=== PATIENT | female | born 1975 | race Asian ===

== ENCOUNTER 2017-07-19 15:00 | Emergency (ER) | payer OTHER ==
[~2017-07-19] VITALS: Ht 167.6 cm; Wt 100.0 kg
[~2017-07-19 15:00] MED LIST: CIPR500T3 PO; HYDR-3240 PO
[2017-07-19] MEDS ORDERED: SODIUM CHLORIDE 0.9% 1,000 ML IV ONE (15:11)
[2017-07-19] MEDS ORDERED: ONDANSETRON 2MG/ML, 2ML IVPush ONE (15:30)
[2017-07-19] MEDS ORDERED: MORPHINE SULFATE 4 MG/ML, 1ML IVPush PRN (15:30)
[2017-07-19] MEDS ORDERED: SODIUM CHLORIDE FLUSH 10ML SYR IVF ONE (15:30)
[2017-07-19] MEDS ORDERED: MORPHINE SULFATE 4 MG/ML, 1ML ONE (15:35)
[2017-07-19] MEDS ORDERED: ONDANSETRON 2MG/ML, 2ML ONE (15:35)
[2017-07-19 15:40] LABS: HEMATOCRIT 50.5 % (34.6-47.8); HEMOGLOBIN 17.3 g/dL (11.7-16.4); WHITE BLOOD COUNT 13.1 x10^3/uL (3.4-10)
[2017-07-19 15:48] LABS: ASPARTATE AMINO TRANSFERASE 36 U/L (15-37); BLOOD UREA NITROGEN 12 mg/dL (7-18)
[2017-07-19 16:04] LABS: IS PT STATUS REG ER OR PRE ER? YES
[2017-07-19 17:25] VITALS: BP 141/67
== END 2017-07-19 17:28 | disposition home or self-care (01) ==
LOC: ED 15:28
DX: R10.13 Epigastric pain (principal); I10 Essential (primary) hypertension
CPT/HCPCS: 36415; 71010; 76700; 80053; 83690; 84484; 85025; 93005; 96361; 96374; 96375; 99285; J2405; J7030

== ENCOUNTER 2017-12-06 20:05 | Inpatient (IN) | payer OTHER ==
[~2017-12-06] VITALS: Ht 167.6 cm; Wt 122.0 kg
[2017-12-06] MEDS ORDERED: MORPHINE SULFATE 4 MG/ML, 1ML ONE (20:27)
[2017-12-06] MEDS ORDERED: ONDANSETRON 2MG/ML, 2ML ONE (20:27)
[2017-12-06] MEDS ORDERED: SODIUM CHLORIDE 0.9% 1,000ML IVBOLUS ONE (20:30)
[2017-12-06] MEDS ORDERED: ONDANSETRON 2MG/ML, 2ML IVPush ONE (20:30)
[2017-12-06] MEDS ORDERED: SODIUM CHLORIDE FLUSH 10ML SYR IVF ONE (20:30)
[2017-12-06 20:42] LABS: BASOPHILS # (AUTO) 0.02 x10^3/uL (0-0.1); BASOPHILS % (AUTO) 0 % (0-1); EOSINOPHILS # (AUTO) 0.01 x10^3/uL (0-0.4); EOSINOPHILS % (AUTO) 0 % (1-7); LYMPHOCYTES # (AUTO) 1.95 x10^3/uL (1-3.4); LYMPHOCYTES % (AUTO) 18 % (22-44); MD NO; MEAN CORPUSCULAR HEMOGLOBIN 31.1 pg (27.0-34.8); MEAN CORPUSCULAR HGB CONC 34.5 g/dL (32.4-35.8); MEAN CORPUSCULAR VOLUME 90.1 fL (80-100); MEAN PLATELET VOLUME 10.3 fL (7.4-10.4); MONOCYTES # (AUTO) 0.38 x10^3/uL (0.2-0.8); MONOCYTES % (AUTO) 4 % (2-9); NEUTROPHILS % (AUTO) 78 % (42-75); PLATELET COUNT 172 x10^3/uL (130-400); RED BLOOD COUNT 5.47 x10^6/uL (3.82-5.3); RED CELL DISTRIBUTION WIDTH 12.7 % (9.6-15.2)
[2017-12-06 20:51] LABS: ALANINE AMINOTRANSFERASE 36 U/L (12-78); ALBUMIN 3.6 g/dL (3.4-5.0); ANION GAP 8 mmol/L (5-15); CALCIUM 9.5 mg/dL (8.5-10.1); CHLORIDE 101 mmol/L (98-107); CREATININE 0.92 mg/dL (0.55-1.02)
[2017-12-06 20:52] LABS: RAPID INFLUENZA A Negative (Negative); RAPID INFLUENZA B Negative (Negative)
[2017-12-06 20:56] LABS: ALKALINE PHOSPHATASE 132 U/L (45-117); BILIRUBIN,TOTAL 0.8 mg/dL (0.2-1.0); TROPONIN I < 0.015 ng/mL (0.000-0.045)
[2017-12-06] MEDS: MORPHINE SULFATE 4 MG/ML, 1ML IVPush PRN (21:03)
[2017-12-06 23:11] LABS: MICROSCOPIC AUTO
[2017-12-06 23:24] LABS: CULTURE INDICATED? YES
[2017-12-06] MEDS ORDERED: OMNIPAQUE 350 MG/ML, 100ML BOTTLE ONE (23:34)
[2017-12-06] MEDS ORDERED: PROMETHAZINE 25 MG/ML, 1ML ONE (23:53)
[2017-12-06] MEDS ORDERED: CEFTRIAXONE PMX 1GM/50ML 50 ML ONE (23:54)
[2017-12-07] MEDS ORDERED: PROMETHAZINE 25 MG/ML, 1ML IM ONE
[2017-12-07] MEDS ORDERED: CEFTRIAXONE PMX 1GM/50ML 50 ML IV ONE
[2017-12-07] MEDS ORDERED: MORPHINE SULFATE 4 MG/ML, 1ML ONE (00:04)
[2017-12-07] MEDS: MORPHINE SULFATE 4 MG/ML, 1ML IVPush PRN (00:05)
[2017-12-07 01:27] VITALS: BP 141/63
[2017-12-07] MEDS ORDERED: POLYETHYLENE GLYCOL 17 GM PACKET PO PRN (02:00)
[2017-12-07] MEDS ORDERED: ENALAPRILAT 1.25 MG/ML, 2ML IVPush PRN (02:00)
[2017-12-07] MEDS ORDERED: LABETALOL 5MG/ML, 20ML IVPush PRN (02:00)
[2017-12-07] MEDS ORDERED: BISACODYL 10 MG SUPP PR PRN (02:00)
[2017-12-07] MEDS ORDERED: OXYcodone IR 5MG TABLET PO PRN (02:00)
[2017-12-07] MEDS ORDERED: hydrALAzine 20 MG/ML, 1ML IVPush PRN (02:00)
[2017-12-07] MEDS ORDERED: morphine SULFATE 10 MG/ML, 1ML IVPush PRN (02:00)
[2017-12-07] MEDS ORDERED: METOCLOPRAMIDE 5 MG/ML, 2ML IVPush PRN (02:30)
[2017-12-07] MEDS: PANTOPRAZOLE 40 MG IV IVPush SCH ×2 (03:00→15:12)
[2017-12-07] MEDS: LISINOPRIL 10 MG TABLET PO SCH ×2 (03:01→08:25)
[2017-12-07] MEDS: SODIUM CHLORIDE 0.9% 1,000 ML IV SCH ×3 (03:01→19:00)
[2017-12-07] MEDS: SUCRALFATE 1 GM TABLET PO SCH ×5 (03:01→21:50)
[2017-12-07] MEDS ORDERED: OMNIPAQUE 350 MG/ML, 100ML BOTTLE ONE (04:07)
[2017-12-07 05:41] LABS: BASOPHILS # (AUTO) 0.02 x10^3/uL (0-0.1); BASOPHILS % (AUTO) 0 % (0-1); EOSINOPHILS # (AUTO) 0.02 x10^3/uL (0-0.4); EOSINOPHILS % (AUTO) 0 % (1-7); LYMPHOCYTES # (AUTO) 2.66 x10^3/uL (1-3.4); LYMPHOCYTES % (AUTO) 24 % (22-44); MD NO; MEAN CORPUSCULAR HEMOGLOBIN 31.2 pg (27.0-34.8); MEAN CORPUSCULAR HGB CONC 34.1 g/dL (32.4-35.8); MEAN CORPUSCULAR VOLUME 91.7 fL (80-100); MONOCYTES # (AUTO) 0.62 x10^3/uL (0.2-0.8); MONOCYTES % (AUTO) 6 % (2-9); NEUTROPHILS # (AUTO) 7.79 x10^3/uL (1.8-6.8); NEUTROPHILS % (AUTO) 70 % (42-75); PLATELET COUNT 189 x10^3/uL (130-400); RED BLOOD COUNT 5.04 x10^6/uL (3.82-5.3); RED CELL DISTRIBUTION WIDTH 12.6 % (9.6-15.2)
[2017-12-07 05:53] LABS: ALBUMIN 3.2 g/dL (3.4-5.0); ANION GAP 6 mmol/L (5-15); CALCIUM 8.4 mg/dL (8.5-10.1); CHLORIDE 104 mmol/L (98-107)
[2017-12-07 05:59] LABS: ALANINE AMINOTRANSFERASE 29 U/L (12-78); ALKALINE PHOSPHATASE 113 U/L (45-117); BILIRUBIN,TOTAL 0.6 mg/dL (0.2-1.0); CHOL/HDL RATIO 2.5; CHOLESTEROL, TOTAL 158 mg/dL (140-239); CREATININE 0.75 mg/dL (0.55-1.02); HDL CHOL % 39 % (28-40); HDL CHOLESTEROL (DIRECT) 62 mg/dL (40-60); LDL CHOLESTEROL,CALCULATED 82 mg/dL (54-169); LDL/HDL RATIO 1.3 (0.5-3.0); TOTAL PROTEIN 7.8 g/dL (6.4-8.2); TRIGLYCERIDES 70 mg/dL (50-200); TROPONIN I < 0.015 ng/mL (0.000-0.045); VLDL CHOLESTEROL 14 mg/dL (0-25)
[2017-12-07 06:00] LABS: FREE T4 (FREE THYROXINE) 1.09 ng/dL (0.76-1.46); THYROID STIMULATING HORMONE 1.21 mIU/L (0.358-3.740)
[2017-12-07 06:32] LABS: HEMOGLOBIN A1C 7.5 % (4.2-6.3)
[2017-12-07] MEDS: INSULIN ASPART 100 UNITS/ML, PEN SQ-INSULIN SCH ×4 (07:00→21:00)
[2017-12-07 07:58] VITALS: BP 92/57
[2017-12-07] MEDS: SENNA/DOCUSATE TABLET PO SCH (08:19)
[2017-12-07] MEDS: ONDANSETRON 2MG/ML, 2ML IVPush PRN ×2 (08:24→17:59)
[2017-12-07] MEDS: CEFTRIAXONE PMX 2GM/50ML 50 ML IV SCH (09:43)
[2017-12-07 11:20] LABS: TROPONIN I < 0.015 ng/mL (0.000-0.045)
[2017-12-07 14:22] VITALS: BP 95/57
[2017-12-07 19:46] VITALS: BP 85/52
[2017-12-08] MEDS: ACETAMINOPHEN 325 MG TABLET PO PRN (00:59)
[2017-12-08 01:30] VITALS: BP 102/57
[2017-12-08] MEDS: SODIUM CHLORIDE 0.9% 1,000 ML IV SCH ×3 (03:04→16:10)
[2017-12-08] MEDS: INSULIN ASPART 100 UNITS/ML, PEN SQ-INSULIN SCH ×4 (06:39→21:00)
[2017-12-08] MEDS: SUCRALFATE 1 GM TABLET PO SCH ×4 (06:39→23:19)
[2017-12-08 07:17] VITALS: BP 92/51
[2017-12-08] MEDS: PANTOPRAZOLE 40 MG IV IVPush SCH ×2 (08:28→23:19)
[2017-12-08] MEDS: LISINOPRIL 10 MG TABLET PO SCH (08:29)
[2017-12-08] MEDS: SENNA/DOCUSATE TABLET PO SCH (08:29)
[2017-12-08] MEDS: CEFTRIAXONE PMX 2GM/50ML 50 ML IV SCH (09:40)
[2017-12-08 12:58] VITALS: BP 120/57
[2017-12-08 19:36] VITALS: BP 115/57
[2017-12-08] MEDS: SIMVASTATIN 40 MG TABLET PO SCH (23:19)
[2017-12-09 01:52] VITALS: BP 96/50
[2017-12-09] MEDS: SODIUM CHLORIDE 0.9% 1,000 ML IV SCH ×2 (03:48→16:35)
[2017-12-09 06:02] LABS: BASOPHILS # (AUTO) 0.04 x10^3/uL (0-0.1); BASOPHILS % (AUTO) 1 % (0-1); EOSINOPHILS # (AUTO) 0.16 x10^3/uL (0-0.4); EOSINOPHILS % (AUTO) 3 % (1-7); LYMPHOCYTES # (AUTO) 2.85 x10^3/uL (1-3.4); LYMPHOCYTES % (AUTO) 45 % (22-44); MD NO; MEAN CORPUSCULAR HEMOGLOBIN 31.4 pg (27.0-34.8); MEAN CORPUSCULAR HGB CONC 34.3 g/dL (32.4-35.8); MEAN CORPUSCULAR VOLUME 91.8 fL (80-100); MEAN PLATELET VOLUME 10.8 fL (7.4-10.4); MONOCYTES # (AUTO) 0.53 x10^3/uL (0.2-0.8); MONOCYTES % (AUTO) 8 % (2-9); NEUTROPHILS # (AUTO) 2.77 x10^3/uL (1.8-6.8); NEUTROPHILS % (AUTO) 44 % (42-75); PLATELET COUNT 122 x10^3/uL (130-400); RED BLOOD COUNT 4.41 x10^6/uL (3.82-5.3); RED CELL DISTRIBUTION WIDTH 12.9 % (9.6-15.2)
[2017-12-09 06:15] LABS: CHLORIDE 110 mmol/L (98-107)
[2017-12-09 06:24] LABS: ALANINE AMINOTRANSFERASE 25 U/L (12-78); ALBUMIN 2.7 g/dL (3.4-5.0); ALKALINE PHOSPHATASE 95 U/L (45-117); ANION GAP 8 mmol/L (5-15); BILIRUBIN,TOTAL 0.2 mg/dL (0.2-1.0); CALCIUM 8.2 mg/dL (8.5-10.1); CREATININE 0.84 mg/dL (0.55-1.02); TOTAL PROTEIN 6.5 g/dL (6.4-8.2)
[2017-12-09] MEDS: SUCRALFATE 1 GM TABLET PO SCH ×4 (06:30→21:00)
[2017-12-09] MEDS: INSULIN ASPART 100 UNITS/ML, PEN SQ-INSULIN SCH ×4 (07:00→21:17)
[2017-12-09 07:33] VITALS: BP 103/63
[2017-12-09] MEDS ORDERED: POTASSIUM CHLORIDE 20 MEQ TAB.ER.PRT PO ONE (08:00)
[2017-12-09] MEDS: CEFTRIAXONE PMX 2GM/50ML 50 ML IV SCH (08:58)
[2017-12-09] MEDS: SENNA/DOCUSATE TABLET PO SCH (08:59)
[2017-12-09] MEDS: LISINOPRIL 10 MG TABLET PO SCH (08:59)
[2017-12-09] MEDS: PANTOPRAZOLE 40 MG IV IVPush SCH (09:04)
[2017-12-09 13:57] VITALS: BP 105/62
[2017-12-09] MEDS: ACETAMINOPHEN 325 MG TABLET PO PRN (16:34)
[2017-12-09 20:12] VITALS: BP 110/58
[2017-12-09] MEDS: SIMVASTATIN 40 MG TABLET PO SCH (21:08)
[2017-12-09] MEDS: PANTOPROZOLE 40MG TABLET PO SCH (21:09)
[2017-12-10] MEDS: SODIUM CHLORIDE 0.9% 1,000 ML IV SCH ×3 (01:30→16:21)
[2017-12-10 02:31] VITALS: BP 113/62
[2017-12-10 05:42] LABS: CHLORIDE 109 mmol/L (98-107)
[2017-12-10 05:52] LABS: ANION GAP 8 mmol/L (5-15); CALCIUM 7.8 mg/dL (8.5-10.1); CREATININE 0.75 mg/dL (0.55-1.02)
[2017-12-10] MEDS: SUCRALFATE 1 GM TABLET PO SCH ×4 (06:21→21:47)
[2017-12-10] MEDS: INSULIN ASPART 100 UNITS/ML, PEN SQ-INSULIN SCH ×4 (06:23→21:47)
[2017-12-10 07:38] VITALS: BP 120/77
[2017-12-10] MEDS: SENNA/DOCUSATE TABLET PO SCH (08:51)
[2017-12-10] MEDS: LISINOPRIL 10 MG TABLET PO SCH (08:51)
[2017-12-10] MEDS: PANTOPROZOLE 40MG TABLET PO SCH ×2 (08:51→21:47)
[2017-12-10] MEDS: CEFTRIAXONE PMX 2GM/50ML 50 ML IV SCH (08:56)
[2017-12-10 13:36] VITALS: BP 126/67
[2017-12-10 19:02] VITALS: BP 110/74
[2017-12-10] MEDS: SIMVASTATIN 40 MG TABLET PO SCH (21:47)
[2017-12-11] MEDS: SODIUM CHLORIDE 0.9% 1,000 ML IV SCH ×3 (00:17→14:10)
[2017-12-11 01:48] VITALS: BP 102/66
[2017-12-11] MEDS: INSULIN ASPART 100 UNITS/ML, PEN SQ-INSULIN SCH ×4 (06:17→20:13)
[2017-12-11 07:33] VITALS: BP 100/66
[2017-12-11] MEDS: SUCRALFATE 1 GM TABLET PO SCH ×4 (07:38→20:13)
[2017-12-11] MEDS: LISINOPRIL 10 MG TABLET PO SCH (08:25)
[2017-12-11] MEDS: CEFTRIAXONE 2,000 MG in DEXTROSE 5% 50 ML IV SCH (08:34)
[2017-12-11] MEDS ORDERED: REGADENOSON 0.4 MG/5 ML SYRINGE ONE (11:22)
[2017-12-11] MEDS: SENNA/DOCUSATE TABLET PO SCH (13:40)
[2017-12-11] MEDS: PANTOPROZOLE 40MG TABLET PO SCH ×2 (13:40→20:11)
[2017-12-11] MEDS: ASPIRIN 81 MG TABLET EC PO SCH (14:56)
[2017-12-11 16:02] VITALS: BP 107/70
[2017-12-11 17:18] VITALS: BP 124/78
[2017-12-11] MEDS: METOPROLOL TARTRATE 25 MG TABLET PO SCH ×2 (17:24→17:26)
[2017-12-11] MEDS ORDERED: HEPARIN 25,000 UNITS/500ML PMX 500 ML IV PRN (17:30)
[2017-12-11] MEDS ORDERED: HEPARIN 5,000 UNITS/ML, 1ML IV ONE (17:30)
[2017-12-11] MEDS ORDERED: HEPARIN 5,000 UNITS/ML, 1ML IV PRN (17:30)
[2017-12-11 18:00] VITALS: BP 106/56
[2017-12-11] MEDS ORDERED: ENOXAPARIN 40 MG/0.4 ML SQ SCH (18:00)
[2017-12-11 18:14] LABS: BASOPHILS # (AUTO) 0.03 x10^3/uL (0-0.1); BASOPHILS % (AUTO) 0 % (0-1); EOSINOPHILS # (AUTO) 0.21 x10^3/uL (0-0.4); EOSINOPHILS % (AUTO) 3 % (1-7); LYMPHOCYTES # (AUTO) 2.44 x10^3/uL (1-3.4); LYMPHOCYTES % (AUTO) 32 % (22-44); MD NO; MEAN CORPUSCULAR HEMOGLOBIN 31.7 pg (27.0-34.8); MEAN CORPUSCULAR HGB CONC 34.8 g/dL (32.4-35.8); MEAN CORPUSCULAR VOLUME 91.1 fL (80-100); MEAN PLATELET VOLUME 10.1 fL (7.4-10.4); MONOCYTES # (AUTO) 0.56 x10^3/uL (0.2-0.8); MONOCYTES % (AUTO) 7 % (2-9); NEUTROPHILS # (AUTO) 4.33 x10^3/uL (1.8-6.8); NEUTROPHILS % (AUTO) 57 % (42-75); PLATELET COUNT 138 x10^3/uL (130-400); RED BLOOD COUNT 4.59 x10^6/uL (3.82-5.3); RED CELL DISTRIBUTION WIDTH 12.9 % (9.6-15.2)
[2017-12-11 20:05] VITALS: BP 104/69
[2017-12-11] MEDS: SIMVASTATIN 40 MG TABLET PO SCH (20:11)
[2017-12-12 02:07] VITALS: BP 107/71
[2017-12-12] MEDS: ASPIRIN 81 MG TABLET EC PO SCH (06:12)
[2017-12-12] MEDS: SUCRALFATE 1 GM TABLET PO SCH (07:00)
[2017-12-12] MEDS: INSULIN ASPART 100 UNITS/ML, PEN SQ-INSULIN SCH ×2 (07:00→11:00)
[2017-12-12 08:00] VITALS: BP 92/55
[2017-12-12] MEDS: METOPROLOL TARTRATE 25 MG TABLET PO SCH ×2 (08:00)
[2017-12-12] MEDS ORDERED: LISINOPRIL 5 MG TABLET PO SCH (09:00)
[2017-12-12] MEDS: PANTOPROZOLE 40MG TABLET PO SCH (09:35)
[2017-12-12] MEDS: SENNA/DOCUSATE TABLET PO SCH (09:36)
[2017-12-12] MEDS: CEFTRIAXONE 2,000 MG in DEXTROSE 5% 50 ML IV SCH (09:36)
[2017-12-12] MEDS ORDERED: PANT40TA5 PO (11:01)
[2017-12-12] MEDS ORDERED: SUCR1TAB33 PO (11:01)
[2017-12-12] MEDS ORDERED: METO25TA35 PO (11:01)
[2017-12-12] MEDS ORDERED: METF500T PO (11:01)
[2017-12-12] MEDS ORDERED: SIMV40TA3 PO (11:01)
[2017-12-12] MEDS ORDERED: ASPI-621 PO (11:01)
[2017-12-12] MEDS ORDERED: CEFD300C37 PO (11:01)
[2017-12-12] MEDS ORDERED: LISI5TAB7 PO (11:01)
== END 2017-12-12 13:15 | disposition home or self-care (01) | DRG 871 ==
LOC: ED 21:48 → EDIP 23:52 → 4NOR 12-07 00:31 → 5SO 12-11 17:34
PROVIDERS: ADMIT Internal Medicine; ATTEND Internal Medicine
DX: A41.9 Sepsis, unspecified organism (principal); E43 Unspecified severe protein-calorie malnutrition; K31.84 Gastroparesis; Z68.41 Body mass index [BMI] 40.0-44.9, adult; E11.65 Type 2 diabetes mellitus with hyperglycemia; E11.43 Type 2 diabetes mellitus with diabetic autonomic (poly)neuropathy; N30.00 Acute cystitis without hematuria; B95.5 Unspecified streptococcus as the cause of diseases classified elsewhere; E78.5 Hyperlipidemia, unspecified; E86.0 Dehydration; I25.10 Atherosclerotic heart disease of native coronary artery without angina pectoris; E87.6 Hypokalemia; F17.210 Nicotine dependence, cigarettes, uncomplicated; I10 Essential (primary) hypertension; Z87.442 Personal history of urinary calculi; Z91.14 Patient's other noncompliance with medication regimen; Z91.19 Patient's noncompliance with other medical treatment and regimen; Z79.4 Long term (current) use of insulin
CPT/HCPCS: 36415; 71045; 71275; 74177; 78452; 80048; 80053; 80061; 81001; 82962; 83036; 83735; 84439; 84443; 84484; 85025; 85520; 87040; 87077; 87086; 87400; 93005; 93017; 93306; 96361; 96365; 96372; 96375; 96376; J0696; J1650; J1815; J2405; J2550; J2785; Q9967; A9502; C9113; C9898; J2270; J7030